=== PATIENT | female | born 1990 | race Caucasian/White ===

== ENCOUNTER → 2017-11-10 | Outpatient (CLI) | payer OTHER ==
[2017-11-10 13:27] LABS: BASO % 0.5 % (0.0-1.0); EOS # 0.1 10^3/uL (0.0-0.50); EOS % 2.1 % (0.0-3.0); HEMATOCRIT 40.5 % (36.0-47.0); HEMOGLOBIN 13.8 g/dl (12.0-15.5); IMMATURE GRANULOCYTE % 0.5 % (0-3.0); LYMPH # 2.1 10^3/uL (1.5-6.5); LYMPH % 31.5 % (24.0-44.0); MEAN CORPUSCULAR HEMOGLOBIN 32.2 pg (27.0-33.0); MEAN CORPUSCULAR HGB CONC 34.1 g/dl (32.0-36.5); MEAN CORPUSCULAR VOLUME 94.4 fl (80.0-96.0); MONO # 0.4 10^3/uL (0.0-0.8); MONO % 5.9 % (0.0-5.0); NEUTROPHILS # 3.9 10^3/uL (1.8-7.7); NEUTROPHILS % 59.5 % (36.0-66.0); PLATELET COUNT, AUTOMATED 255 10^3/uL (150-450); RED BLOOD COUNT 4.29 10^6/uL (4.00-5.40); WHITE BLOOD COUNT 6.6 10^3/uL (4.0-10.0)
[2017-11-10 16:19] LABS: CHLAMYDIA DNA AMPLIFICATION NEGATIVE (NEGATIVE); GC DNA AMPLIFICATION NEGATIVE (NEGATIVE)
[2017-11-11 09:07] LABS: RUBELLA IgG QUALITATIVE IMMUNE (IMMUNE)
[2017-11-11 09:12] LABS: HBsAg Prenatal NEGATIVE (NEGATIVE)
[2017-11-11 09:35] LABS: HEPATITIS C VIRUS ABY INDEX 0.1 INDEX (<0.8)
[2017-11-11 09:36] LABS: HIV 1&2 SCREEN CENTAUR NEGATIVE (NEGATIVE)
== END ==
LOC: M SMT 08:33
DX: Z34.81 Encounter for supervision of other normal pregnancy, first trimester (principal); Z3A.08 8 weeks gestation of pregnancy

== ENCOUNTER → 2017-12-11 | Outpatient (CLI) | payer OTHER ==
[2017-12-11 13:18] LABS: HEMATOCRIT 37.1 % (36.0-47.0); HEMOGLOBIN 12.9 g/dl (12.0-15.5); MEAN CORPUSCULAR HEMOGLOBIN 32.1 pg (27.0-33.0); MEAN CORPUSCULAR HGB CONC 34.8 g/dl (32.0-36.5); MEAN CORPUSCULAR VOLUME 92.3 fl (80.0-96.0); PLATELET COUNT, AUTOMATED 236 10^3/uL (150-450); RED BLOOD COUNT 4.02 10^6/uL (4.00-5.40); RED CELL DISTRIBUTION WIDTH 12.3 % (11.5-14.5); WHITE BLOOD COUNT 6.6 10^3/uL (4.0-10.0)
[2017-12-11 14:00] LABS: ALBUMIN 3.3 GM/DL (3.2-5.2); ALKALINE PHOSPHATASE 46 U/L (45-117); ALT/SGPT 20 U/L (12-78); ANION GAP 7 MEQ/L (8-16); AST/SGOT 13 U/L (7-37); BILIRUBIN,TOTAL 0.5 MG/DL (0.2-1.0); BLOOD UREA NITROGEN 7 MG/DL (7-18); CALCIUM LEVEL 8.7 MG/DL (8.5-10.1); CARBON DIOXIDE LEVEL 26 MEQ/L (21-32); CHLORIDE LEVEL 104 MEQ/L (98-107); CREATININE FOR GFR 0.56 MG/DL (0.55-1.30); GLOMERULAR FILTRATION RATE > 60.0 (>60); GLUCOSE, FASTING 77 MG/DL (70-100); POTASSIUM SERUM 3.7 MEQ/L (3.5-5.1); RHEUMATOID FACTOR QUANT < 10.0 IU/ML (<15.0); SODIUM LEVEL 137 MEQ/L (136-145); THYROGLOBULIN ANTIBODY 24.6 U/ML (<60.0); THYROID PEROXIDASE ANTIBODY 37.8 U/ML (<60.0); THYROXINE (T4) 15.4 UG/DL (4.5-12.0); TOTAL PROTEIN 7.4 GM/DL (6.4-8.2)
[2017-12-11 14:22] LABS: ERYTHROCYTE SEDIMENTATION RATE 15 mm/hr (0-20)
[2017-12-18 00:07] LABS: ANTINUCLEAR ANTIBODIES DIRECT Negative (Negative); IGE RECEPTOR ABY 1 <1.6 (<10)
== END ==
LOC: M SMT 09:23
DX: L50.1 Idiopathic urticaria (principal)
CPT/HCPCS: 84443

== ENCOUNTER → 2018-01-18 | Outpatient (CLI) | payer OTHER | LOC: M RAD 17:38 | DX: Z34.02 Encounter for supervision of normal first pregnancy, second trimester (principal); Z3A.18 18 weeks gestation of pregnancy | CPT/HCPCS: 76811 ==

== ENCOUNTER → 2018-02-16 | Outpatient (CLI) | payer OTHER | LOC: M RAD 17:45 | DX: Z34.02 Encounter for supervision of normal first pregnancy, second trimester (principal); Z3A.22 22 weeks gestation of pregnancy | CPT/HCPCS: 76816 ==

== ENCOUNTER → 2018-03-16 | Outpatient (CLI) | payer OTHER ==
[2018-03-16 10:59] LABS: HEMATOCRIT 34.3 % (36.0-47.0); HEMOGLOBIN 11.7 g/dl (12.0-15.5); MEAN CORPUSCULAR HEMOGLOBIN 32.7 pg (27.0-33.0); MEAN CORPUSCULAR HGB CONC 34.1 g/dl (32.0-36.5); MEAN CORPUSCULAR VOLUME 95.8 fl (80.0-96.0); PLATELET COUNT, AUTOMATED 234 10^3/uL (150-450); RED BLOOD COUNT 3.58 10^6/uL (4.00-5.40); WHITE BLOOD COUNT 9.8 10^3/uL (4.0-10.0)
== END ==
LOC: M LAB 09:18
PROVIDERS: ATTEND Advanced Practice Midwife
DX: Z34.82 Encounter for supervision of other normal pregnancy, second trimester (principal)

== ENCOUNTER → 2018-04-09 | Outpatient (CLI) | payer OTHER | LOC: M LAB 08:18 | PROVIDERS: ATTEND Advanced Practice Midwife | DX: R73.02 Impaired glucose tolerance (oral) (principal) ==

== ENCOUNTER → 2018-05-24 | Outpatient (REF) | payer OTHER | LOC: M SMT 10:41 | PROVIDERS: ATTEND Obstetrics & Gynecology | DX: Z34.03 Encounter for supervision of normal first pregnancy, third trimester (principal); Z3A.00 Weeks of gestation of pregnancy not specified ==

== ENCOUNTER 2018-06-15 06:33 | Outpatient (CLI) | payer OTHER ==
[~2018-06-15] VITALS: Ht 170.2 cm; Wt 86.2 kg
[2018-06-15 06:54] VITALS: BP 135/84
[2018-06-15 07:09] VITALS: BP 133/83
[2018-06-15] MEDS ORDERED: UNIS25TA3 PO (07:25)
[2018-06-15] MEDS ORDERED: PRENTAB9 PO (07:25)
[2018-06-15 08:01] VITALS: BP 119/72
[2018-06-15 08:34] VITALS: BP 113/73
[2018-06-15 09:22] VITALS: BP 122/73
[2018-06-15 10:27] VITALS: BP 133/78
[2018-06-16] MEDS ORDERED: IBUP80TA PO (14:40)
[2018-06-16] MEDS ORDERED: PERCOCET PO (14:40)
[2018-06-16] MEDS ORDERED: COLA100C5 PO (14:40)
== END 2018-06-15 10:52 | disposition home or self-care (01) ==
LOC: M LDO 06:33
PROVIDERS: ATTEND Advanced Practice Midwife
DX: O47.1 False labor at or after 37 completed weeks of gestation (principal); Z3A.39 39 weeks gestation of pregnancy

== ENCOUNTER 2018-06-15 20:07 | Inpatient (IN) | payer OTHER ==
[2018-06-15] VITALS (14 sets, daily range): BP systolic 95–140; BP diastolic 50–86
[~2018-06-15] VITALS: Ht 170.2 cm; Wt 86.4 kg
[~2018-06-15 20:07] MED LIST: PRENTAB9 PO; UNIS25TA3 PO
[2018-06-15] MEDS ORDERED: LACTATED RINGER'S 1000 ML IV STA (20:51)
[2018-06-15] MEDS: LR 1,000 ML IV SCH (20:51)
[2018-06-15] MEDS ORDERED: FENTANYL 2MCG/ML ROPIVACAINE 0.2% IN 0.9% NACL 100ML IVBAG As Ordered ONE (21:20)
[2018-06-15 21:26] LABS: HEMATOCRIT 40.8 % (36.0-47.0); HEMOGLOBIN 13.4 g/dl (12.0-15.5); MEAN CORPUSCULAR HEMOGLOBIN 28.9 pg (27.0-33.0); MEAN CORPUSCULAR HGB CONC 32.8 g/dl (32.0-36.5); MEAN CORPUSCULAR VOLUME 88.1 fl (80.0-96.0); PLATELET COUNT, AUTOMATED 228 10^3/uL (150-450); RED BLOOD COUNT 4.63 10^6/uL (4.00-5.40); WHITE BLOOD COUNT 10.8 10^3/uL (4.0-10.0)
[2018-06-15] MEDS ORDERED: PENICILLIN G POTASSIUM IV 5 MU in D5W MINI-BAG PLUS 100 ML IV STA (21:55)
[2018-06-15] MEDS ORDERED: PENICILLIN G POTASSIUM 5 MU VIAL As Ordered ONE (21:55)
[2018-06-15] MEDS ORDERED: PENICILLIN G POTASSIUM IV 5 MU in D5W MINI-BAG PLUS 100 ML IV SCH (22:00)
[2018-06-15] MEDS ORDERED: LACTATED RINGER'S 1000 ML IV PRN (22:10)
[2018-06-15] MEDS ORDERED: EPIDURAL/PCA KEYS XX PRN (22:10)
[2018-06-15] MEDS: FENTANYL/ROPIVACAINE/NACL BAG 100 ML EPIDURAL SCH (22:10)
[2018-06-15] MEDS ORDERED: REFRIGERATOR IV KEYS XX PRN (22:10)
[2018-06-15] MEDS ORDERED: NALOXONE INJ 0.4 MG/1 ML VIAL (J2310) IV PRN (22:10)
[2018-06-15] MEDS ORDERED: ePHEDrine SULFATE 25 MG/5 ML(5MG/ML) SYRINGE IV PRN (22:10)
[2018-06-15] MEDS ORDERED: ONDANSETRON 4MG/2ML VIAL (J2405) IV PRN (22:10)
[2018-06-15] MEDS ORDERED: EPIDURAL COMMENT XX SCH (22:10)
[2018-06-15] MEDS ORDERED: diphenhydrAMINE INJ 50MG/ML VIAL (J1200) IV PRN (22:10)
[2018-06-16] VITALS (57 sets, daily range): BP systolic 88–135; BP diastolic 51–95
--- NOTE | 2018-06-16 00:27 | HPE ---
DATE OF ADMISSION: 06/15/2018 REASON FOR ADMISSION: Labor. HISTORY OF PRESENT ILLNESS: Mrs. Ivan is a 27-year-old 1 who presents at 39 weeks 2 days estimated gestational age by her last menstrual period, confirmed by first trimester ultrasound with complaints of contractions. She reports contractions throughout the day that have increased in intensity and frequency. She reports active movement. She denies any vaginal bleeding or leakage of fluid. Her course has been unremarkable. She initiated care first trimester, has been appropriate throughout. PAST MEDICAL HISTORY: None. PAST SURGICAL HISTORY: She has had oral surgery and a liver biopsy. PAST OBSTETRICAL HISTORY: She is a 1. MEDICATIONS: Includes vitamins. ALLERGIES: She has no known drug allergies. SOCIAL HISTORY: Denies any alcohol, tobacco, or drug use during her . PHYSICAL EXAMINATION: Vital signs: Stable. She is afebrile. She has category one heart rate tracing with contractions on tocometer. General appearance: Well appearing, no acute distress. Lungs: Clear to auscultation bilaterally. Cardiovascular: Heart regular rate and rhythm. Abdomen: Her abdomen is gravid, nontender. Estimated weight 3700 grams. Cervical Exam: She is 4 cm, 90% effaced, -2 station. LABORATORY DATA: labs - her blood type is A+, antibody screen is negative. Rubella is immune. RPR is nonreactive. Hepatitis surface antigen is negative, HIV is negative. Hepatitis C is nonreactive. Chlamydia and gonorrhea screens are negative. She had an elevated 1-hour Glucola with a normal 3-hour glucose tolerance test. She is GBS positive. ASSESSMENT: 1. Mrs. Ivan is a 27-year-old 1 at 39 weeks 2 days estimated gestational age, here in active labor. 2. Reassuring status. 3. GBS positive. PLAN: 1. Admit to labor and delivery, CBC, RPR, type and screen. 2. The patient is a good candidate for an epidural. 3. Anticipate spontaneous vaginal delivery. [facility] CENTERAlonzo
[2018-06-16] MEDS ORDERED: OXYTOCIN DRIP 30 UNITS in APPROPRIATE DILUENT 1 EA IV SCH ×2 (02:00→14:34)
[2018-06-16] MEDS: PENICILLIN G POTASSIUM IV 2.5 MU in APPROPRIATE DILUENT 1 EA IV SCH ×3 (02:11→10:01)
[2018-06-16] MEDS: LR 1,000 ML IV SCH ×3 (06:10→12:02)
[2018-06-16] MEDS: FENTANYL/ROPIVACAINE/NACL BAG 100 ML EPIDURAL SCH (07:16)
[2018-06-16] MEDS: PRENATAL VITAMINS CHEWABLE TABLET PO SCH (09:00)
[2018-06-16] MEDS ORDERED: LACTATED RINGER'S 1000 ML IV STA (12:45)
[2018-06-16] MEDS ORDERED: BICITRA 30ML SOLN UDC PO ONE (13:00)
[2018-06-16] MEDS ORDERED: AZITHROMYCIN INJ 500 MG, VIAL MATE ADAPTER 1 EACH in D5W 250 ML IV ONE (13:00)
[2018-06-16] MEDS ORDERED: LIDOCAINE 2% W/EPIN INJ 20ML **PRES FREE As Ordered ONE ×2 (13:35→14:13)
[2018-06-16] MEDS ORDERED: METOCLOPRAMIDE INJ 10MG/2ML VIAL (J2765) IV PRN ×2 (14:00→15:00)
[2018-06-16] MEDS ORDERED: ONDANSETRON 4MG/2ML VIAL (J2405) IV PRN ×3 (14:00→15:00)
[2018-06-16] MEDS ORDERED: NALBUPHINE HCL 10 MG/ML AMP (J2300) IV PRN (14:00)
[2018-06-16] MEDS ORDERED: diphenhydrAMINE INJ 50MG/ML VIAL (J1200) IV PRN (14:00)
[2018-06-16] MEDS ORDERED: NALOXONE INJ 0.4 MG/1 ML VIAL (J2310) IV PRN ×2 (14:00)
[2018-06-16 14:12] LABS: CORD GAS ABE A -0.7; CORD GAS HCO3 A 26.6 MEQ/L; CORD GAS O2 SAT A 34.2 %; CORD GAS PH A 7.31 UNITS; CORD GAS PO2 A 17.5 mmHg; CORD GAS SBC A 22.3 MEQ/L; CORD GAS TCO2 A 28.2 MEQ/L
[2018-06-16 14:13] LABS: CORD GAS ABE V -1.2; CORD GAS HCO3 V 24.7 MEQ/L; CORD GAS O2 SAT V 70.7 %; CORD GAS PCO2 V 45.8 mmHg; CORD GAS PH V 7.35 UNITS; CORD GAS PO2 V 28.1 mmHg; CORD GAS SBC V 22.8 MEQ/L; CORD GAS TCO2 V 26.1 MEQ/L
[2018-06-16] MEDS ORDERED: MORPHINE PRES-FREE INJ 10 MG/10 ML VIAL (J2274) As Ordered ONE (14:13)
[2018-06-16] MEDS ORDERED: OXYTOCIN INJ 10 UNITS/ML VIAL (J2590) As Ordered ONE (14:13)
[2018-06-16] MEDS ORDERED: COLA100C5 PO (14:40)
[2018-06-16] MEDS ORDERED: IBUP80TA PO (14:40)
[2018-06-16] MEDS ORDERED: PERCOCET PO (14:40)
[2018-06-16] MEDS ORDERED: PROMETHAZINE 25 MG TAB PO PRN (14:45)
[2018-06-16] MEDS ORDERED: RHOGAM 300 MCG (1500 IU) INJ (J2790) IM SCH (14:45)
[2018-06-16] MEDS ORDERED: MEASLES,MUMPS,RUBELLA VACCINE INJ (MMR-II) (90707) SC SCH (14:45)
[2018-06-16] MEDS ORDERED: PERCOCET 5MG/325MG TAB PO PRN (15:00)
[2018-06-16] MEDS ORDERED: fentaNYL 100 MCG/2 ML INJECTION (J3010) IV PRN (15:00)
[2018-06-16] MEDS ORDERED: MEPERIDINE INJ 25 MG/ML VIAL (J2175) IV PRN (15:00)
[2018-06-16] MEDS ORDERED: LR 1,000 ML IV SCH (15:00)
[2018-06-16] MEDS ORDERED: KETOROLAC 30 MG/ML VIAL (J1885) IV PRN (15:00)
[2018-06-16] MEDS ORDERED: OXYTOCIN 30 UNITS IN 0.9% NaCl 500ML IV BAG (J2590) As Ordered ONE (15:13)
[2018-06-16] MEDS ORDERED: KETOROLAC 30 MG/ML VIAL (J1885) As Ordered ONE (15:32)
[2018-06-16] MEDS: DOCUSATE SODIUM 100 MG CAP PO SCH (21:20)
[2018-06-16] MEDS: KETOROLAC 30 MG/ML VIAL (J1885) IV SCH (21:20)
[2018-06-17 02:33] VITALS: BP 93/50
[2018-06-17] MEDS ORDERED: FENTANYL 2MCG/ML ROPIVACAINE 0.2% IN 0.9% NACL 100ML IVBAG As Ordered ONE (03:56)
[2018-06-17] MEDS: KETOROLAC 30 MG/ML VIAL (J1885) IV SCH ×2 (04:13→10:33)
[2018-06-17 06:20] VITALS: BP 94/55
[2018-06-17 07:10] LABS: HEMATOCRIT 28.1 % (36.0-47.0); MEAN CORPUSCULAR HEMOGLOBIN 29.4 pg (27.0-33.0); MEAN CORPUSCULAR HGB CONC 32.7 g/dl (32.0-36.5); MEAN CORPUSCULAR VOLUME 89.8 fl (80.0-96.0); PLATELET COUNT, AUTOMATED 215 10^3/uL (150-450); RED BLOOD COUNT 3.13 10^6/uL (4.00-5.40); WHITE BLOOD COUNT 10.6 10^3/uL (4.0-10.0)
[2018-06-17 07:21] LABS: HEMOGLOBIN 9.2 g/dl (12.0-15.5)
[2018-06-17] MEDS: PRENATAL VITAMINS CHEWABLE TABLET PO SCH (07:56)
[2018-06-17] MEDS: DOCUSATE SODIUM 100 MG CAP PO SCH ×2 (07:57→20:15)
[2018-06-17 10:00] VITALS: BP 111/63
[2018-06-17] MEDS: PERCOCET 5MG/325MG TAB PO PRN ×2 (13:41→20:16)
[2018-06-17 14:00] VITALS: BP 98/52
[2018-06-17 18:00] VITALS: BP 106/58
[2018-06-17] MEDS: IBUPROFEN 800 MG TAB PO SCH (18:11)
[2018-06-17 22:00] VITALS: BP 118/57
[2018-06-18] MEDS: PERCOCET 5MG/325MG TAB PO PRN ×2 (00:31→06:43)
[2018-06-18] MEDS: IBUPROFEN 800 MG TAB PO SCH ×2 (01:40→09:36)
[2018-06-18 06:10] VITALS: BP 94/55
[2018-06-18] MEDS ORDERED: OXYC1TAB23 PO (07:57)
[2018-06-18] MEDS: PRENATAL VITAMINS CHEWABLE TABLET PO SCH (08:23)
[2018-06-18] MEDS: DOCUSATE SODIUM 100 MG CAP PO SCH (08:23)
== END 2018-06-18 12:00 | disposition home or self-care (01) | DRG 773 ==
LOC: M LDO 20:07 → M LDI 20:27 → M OBS 06-16 16:15
PROVIDERS: ADMIT Obstetrics & Gynecology; ATTEND Obstetrics & Gynecology
PROC: 10D00Z1 Extraction of Products of Conception, Low, Open Approach (ICD-10-PCS; principal; 2018-06-16 13:49)
DX: O99.824 Streptococcus B carrier state complicating childbirth (principal); Z3A.39 39 weeks gestation of pregnancy; O62.1 Secondary uterine inertia; Z37.0 Single live birth

== ENCOUNTER → 2018-12-14 | Outpatient (REF) | payer OTHER ==
[~2018-12-14] MED LIST changes: +COLA100C5 PO; +IBUP80TA PO; +OXYC1TAB23 PO; +PERCOCET PO
[2018-12-17 14:26] LABS: HPV HYBRID CAPTURE II Negative (Negative)
== END ==
LOC: M LAB REF 14:03
PROVIDERS: ATTEND Advanced Practice Midwife
DX: Z12.4 Encounter for screening for malignant neoplasm of cervix (principal)

== ENCOUNTER → 2019-03-02 | Outpatient (REF) | payer OTHER ==
[2019-03-02 16:01] LABS: ALBUMIN 3.8 GM/DL (3.2-5.2); ALT/SGPT 77 U/L (12-78); BILIRUBIN,TOTAL 0.4 MG/DL (0.2-1.0); BLOOD UREA NITROGEN 18 MG/DL (7-18); CALCIUM LEVEL 9.3 MG/DL (8.5-10.1); CARBON DIOXIDE LEVEL 28 MEQ/L (21-32); CHLORIDE LEVEL 106 MEQ/L (98-107); CHOLESTEROL LEVEL 187 MG/DL (<200); CREATININE FOR GFR 0.88 MG/DL (0.55-1.30); FREE T4 1.08 NG/DL (0.76-1.46); GLOMERULAR FILTRATION RATE > 60.0 (>60); GLUCOSE, FASTING 67 MG/DL (70-100); HDL CHOLESTEROL 82 MG/DL (>40); LDL CHOLESTEROL 96 MG/DL (<100); NON-HDL-C 105 MG/DL; POTASSIUM SERUM 4.4 MEQ/L (3.5-5.1); SODIUM LEVEL 141 MEQ/L (136-145); TOTAL PROTEIN 7.8 GM/DL (6.4-8.2); TRIGLYCERIDES LEVEL 44 MG/DL (<150)
[2019-03-02 16:04] LABS: TOTAL 25(OH) VITAMIN D 30.2 NG/ML (30.0-100.0)
== END ==
LOC: M SFHCPLAZ 10:36
PROVIDERS: ATTEND Nurse Practitioner Family
DX: Z13.1 Encounter for screening for diabetes mellitus (principal); Z13.220 Encounter for screening for lipoid disorders; Z13.21 Encounter for screening for nutritional disorder
CPT/HCPCS: 36415; 80053; 80061; 82306; 84439; 84443; G0463

== ENCOUNTER → 2019-04-20 | Outpatient (CLI) | payer OTHER ==
[2019-04-20 13:11] LABS: HEMATOCRIT 41.5 % (36.0-47.0); HEMOGLOBIN 13.2 g/dl (12.0-15.5); MEAN CORPUSCULAR HEMOGLOBIN 29.9 pg (27.0-33.0); MEAN CORPUSCULAR HGB CONC 31.8 g/dl (32.0-36.5); MEAN CORPUSCULAR VOLUME 93.9 fl (80.0-96.0); PLATELET COUNT, AUTOMATED 233 10^3/uL (150-450); RED BLOOD COUNT 4.42 10^6/uL (4.00-5.40); WHITE BLOOD COUNT 3.7 10^3/uL (4.0-10.0)
[2019-04-20 13:20] LABS: ALBUMIN 3.8 GM/DL (3.2-5.2); ALT/SGPT 55 U/L (12-78); BILIRUBIN,TOTAL 0.5 MG/DL (0.2-1.0); BLOOD UREA NITROGEN 16 MG/DL (7-18); CARBON DIOXIDE LEVEL 28 MEQ/L (21-32); CHLORIDE LEVEL 106 MEQ/L (98-107); CREATININE FOR GFR 0.83 MG/DL (0.55-1.30); GLOMERULAR FILTRATION RATE > 60.0 (>60); GLUCOSE, FASTING 75 MG/DL (70-100); POTASSIUM SERUM 4.2 MEQ/L (3.5-5.1); SODIUM LEVEL 140 MEQ/L (136-145); TOTAL PROTEIN 7.3 GM/DL (6.4-8.2)
== END ==
LOC: M PLALAB 09:10
PROVIDERS: ATTEND Nurse Practitioner Family
DX: R74.8 Abnormal levels of other serum enzymes (principal)

== ENCOUNTER → 2019-06-03 | Outpatient (REF) | payer OTHER ==
[2019-06-03 18:11] LABS: BASO # 0.1 10^3/uL (0.0-0.2); BASO % 0.9 % (0.0-1.0); EOS # 1.1 10^3/uL (0.0-0.5); EOS % 19.5 % (0.0-3.0); HEMATOCRIT 43.5 % (36.0-47.0); HEMOGLOBIN 14.4 g/dl (12.0-15.5); LYMPH # 1.9 10^3/uL (1.5-5.0); LYMPH % 34.6 % (24.0-44.0); MEAN CORPUSCULAR HGB CONC 33.1 g/dl (32.0-36.5); MEAN CORPUSCULAR VOLUME 93.5 fl (80.0-96.0); MONO # 0.4 10^3/uL (0.0-0.8); NEUTROPHILS % 36.8 % (36.0-66.0); PLATELET COUNT, AUTOMATED 226 10^3/uL (150-450); RED BLOOD COUNT 4.65 10^6/uL (4.00-5.40); WHITE BLOOD COUNT 5.5 10^3/uL (4.0-10.0)
[2019-06-03 18:17] LABS: ALT/SGPT 53 U/L (12-78); BILIRUBIN,TOTAL 0.2 MG/DL (0.2-1.0); BLOOD UREA NITROGEN 11 MG/DL (7-18); CALCIUM LEVEL 8.9 MG/DL (8.5-10.1); CARBON DIOXIDE LEVEL 31 MEQ/L (21-32); CHLORIDE LEVEL 106 MEQ/L (98-107); CREATININE FOR GFR 0.83 MG/DL (0.55-1.30); GLOMERULAR FILTRATION RATE > 60.0 (>60); GLUCOSE, FASTING 90 MG/DL (70-100); POTASSIUM SERUM 3.9 MEQ/L (3.5-5.1); SODIUM LEVEL 142 MEQ/L (136-145)
[2019-06-03 19:13] LABS: ERYTHROCYTE SEDIMENTATION RATE 15 mm/hr (0-20)
== END ==
LOC: M SFHCPLAZ 13:59
PROVIDERS: ATTEND Nurse Practitioner Family
DX: R05 Cough (principal); R94.5 Abnormal results of liver function studies
CPT/HCPCS: 71046; 80053; 85025; 85652; G0463

== ENCOUNTER → 2019-06-03 | Outpatient (CLI) | payer OTHER ==
--- NOTE | 2019-06-03 14:28 | REPPI ---
Chest x-ray: Two views. History: Cough. No comparison study. Findings: Lungs are symmetrically aerated and clear. Pleural angles are sharp. Heart size is normal. Pulmonary vasculature is not increased. No infiltrate is seen. No bony abnormality. Impression: No infiltrate noted. Electronically Signed by Melvin Nichole MD 06/03/2019 02:21 P
== END ==
LOC: M PLAIMG 13:59
PROVIDERS: ATTEND Nurse Practitioner Family
DX: R05 Cough (principal)

== ENCOUNTER → 2020-03-02 | Outpatient (REF) | payer OTHER ==
[2020-03-02 16:49] LABS: HEMATOCRIT 40.1 % (36.0-47.0); HEMOGLOBIN 13.5 g/dl (12.0-15.5); MEAN CORPUSCULAR HEMOGLOBIN 31.8 pg (27.0-33.0); MEAN CORPUSCULAR HGB CONC 33.7 g/dl (32.0-36.5); MEAN CORPUSCULAR VOLUME 94.4 fl (80.0-96.0); PLATELET COUNT, AUTOMATED 203 10^3/uL (150-450); RED BLOOD COUNT 4.25 10^6/uL (4.00-5.40); WHITE BLOOD COUNT 6.5 10^3/uL (4.0-10.0)
[2020-03-02 17:43] LABS: HIV 1&2 SCREEN CENTAUR NEGATIVE (NEGATIVE)
== END ==
LOC: M PLALAB 10:46
PROVIDERS: ATTEND Advanced Practice Midwife
DX: O34.219 Maternal care for unspecified type scar from previous cesarean delivery (principal); Z3A.00 Weeks of gestation of pregnancy not specified

== ENCOUNTER → 2020-04-04 | Outpatient (REF) | payer OTHER | LOC: M SFHCWAGY 13:03 | PROVIDERS: ATTEND Obstetrics & Gynecology | DX: O34.211 Maternal care for low transverse scar from previous cesarean delivery (principal); Z3A.13 13 weeks gestation of pregnancy | CPT/HCPCS: 87086; G0463 ==

== ENCOUNTER → 2020-04-04 | Outpatient (CLI) | payer OTHER | LOC: M WHC 08:32 | PROVIDERS: ATTEND Obstetrics & Gynecology | DX: Z34.91 Encounter for supervision of normal pregnancy, unspecified, first trimester (principal); Z3A.13 13 weeks gestation of pregnancy; Z53.9 Procedure and treatment not carried out, unspecified reason ==

== ENCOUNTER → 2020-05-07 | Outpatient (CLI) | payer OTHER ==
--- NOTE | 2020-05-07 14:11 | REP ---
INDICATION: ANATOMY COMPARISON: None. TECHNIQUE: Transabdominal obstetrical ultrasound with color Doppler evaluation. FINDINGS: Examination demonstrates a single live intrauterine in transverse (head to maternal right) presentation. motion is identified by technologist. Placenta is noted anterior and grade 1 without evidence for placenta previa or abruption. Amniotic fluid volume is normal. Cervix measures 3.2 cm in length and appears closed.. Gestational age by current measurements 18 weeks 5 days with RORY 10/03/2020. FHR equals 146 beats per minute. BPD: 4.1 cm 18 weeks 1 day HC: 15.6 cm 18 weeks 4 days AC: 13.1 cm 18 weeks 4 days FL: 2.9 cm 18 weeks 6 days HL: 2.8 cm 18 weeks 6 days HC/AC: 1.19 Estimated weight 253 grams (71stpercentile). Anatomical assessment demonstrates normal structures including cranium, choroid plexus, cavum, cerebellum/posterior fossa, lungs, four-chamber heart/ventricular outflow tracts, diaphragm, stomach, cord insertion/three-vessel cord, kidneys/bladder, spine, and extremities. IMPRESSION: Single live intrauterine in transverse lie demonstrating appropriate interval growth and estimated weight. Limited evaluation of the facial features due to positioning. Remainder of the anatomical assessment is complete and normal. <Electronically signed by Teodoro Lozano > 05/07/20 [id number]
== END ==
LOC: M WHC 07:37
PROVIDERS: ATTEND Obstetrics & Gynecology
DX: Z36.9 Encounter for antenatal screening, unspecified (principal); Z3A.18 18 weeks gestation of pregnancy

== ENCOUNTER → 2020-06-05 | Outpatient (CLI) | payer OTHER | LOC: M WHC 08:58 | PROVIDERS: ATTEND Advanced Practice Midwife | DX: Z53.21 Procedure and treatment not carried out due to patient leaving prior to being seen by health care provider (principal) ==

== ENCOUNTER → 2020-06-18 | Outpatient (CLI) | payer OTHER ==
--- NOTE | 2020-06-18 17:28 | REP ---
INDICATION: F/U ANATOMY. COMPARISON: 05/07/2020. TECHNIQUE: Real-time sonographic evaluation of the gravid uterus performed. FINDINGS: Estimated gestational age is24 weeks 2 days, EDC 10/06/2020. Today's measurements indicate appropriate growth. Presentation: Breech Placenta the anterior, grade 0, without evidence of placenta previa. heart rate is recorded at 152 beats per minute. Amniotic fluid is subjectively normal. Closed cervical length is measured at 3.8 cm. Biometry chart: BPD: 62 mm, 25 weeks 1 days, 69th percentile. HC: 230 mm, 25 weeks 0 days, 67th percentile AC: 214 mm, 26 weeks 0 days, 84th percentile Femur length: 43 mm, 24 weeks 0 days, 43rd percentile HC to AC ratio: 1.07, normal range 1.02-1.21. Estimated weight: 772g, 78th percentile. anatomy: The facial structures, four-chamber heart, ventricular outflow tracts, stomach and bladder as well as 3 vessel cord are all visualized and are grossly unremarkable. IMPRESSION: Viable single intrauterine gestation as above. <Electronically signed by Stephen Amaya > 06/18/20 [id number]
== END ==
LOC: M WHC 15:11
PROVIDERS: ATTEND Advanced Practice Midwife
DX: Z34.92 Encounter for supervision of normal pregnancy, unspecified, second trimester (principal); Z3A.24 24 weeks gestation of pregnancy

== ENCOUNTER → 2020-07-09 | Outpatient (REF) | payer OTHER ==
[2020-07-09 14:02] LABS: HEMATOCRIT 35.6 % (36.0-47.0); HEMOGLOBIN 11.9 g/dl (12.0-15.5); MEAN CORPUSCULAR HEMOGLOBIN 33.1 pg (27.0-33.0); MEAN CORPUSCULAR HGB CONC 33.4 g/dl (32.0-36.5); MEAN CORPUSCULAR VOLUME 99.2 fl (80.0-96.0); PLATELET COUNT, AUTOMATED 230 10^3/uL (150-450); RED BLOOD COUNT 3.59 10^6/uL (4.00-5.40); WHITE BLOOD COUNT 7.7 10^3/uL (4.0-10.0)
== END ==
LOC: M PLALAB 08:04
PROVIDERS: ATTEND Advanced Practice Midwife
DX: Z36.9 Encounter for antenatal screening, unspecified (principal)
CPT/HCPCS: 36415; 82950; 85027; 86850; 86900; 86901; G0463

== ENCOUNTER → 2020-09-04 | Outpatient (REF) | payer OTHER | LOC: M SFHCWAGY 13:17 | PROVIDERS: ATTEND Advanced Practice Midwife | DX: Z34.93 Encounter for supervision of normal pregnancy, unspecified, third trimester (principal) | CPT/HCPCS: 87081; 87186; G0463 ==

== ENCOUNTER → 2020-09-24 | Outpatient (CLI) | payer OTHER ==
--- NOTE | 2020-09-24 11:38 | REP ---
INDICATION: GROWTH COMPARISON: 06/18/2020 TECHNIQUE: Transabdominal obstetrical ultrasound with color Doppler evaluation. FINDINGS: Examination demonstrates a single live intrauterine in cephalic presentation. motion is identified by technologist. Placenta is noted anterior and grade 1 without evidence for placenta previa or abruption. Amniotic fluid volume is normal. Cervix measures 4.4 cm in length and appears closed.. Selected gestational age: 38 weeks 2 days with RORY 10/06/2020. Gestational age by current measurements 38 weeks 6 days with RORY 10/02/2020. FHR equals 129 beats per minute. BPD: 9.4 cm at 38 weeks 1 day HC: 34.0 cm at 39 weeks 0 days AC: 36.8 cm at 40 weeks 5 days FL: 7.4 cm at 37 weeks 5 days HL: 6.6 cm at 38 weeks 3 days HC/AC: 0.92 Estimated weight 3826 grams (90thpercentile). KELLY: 15.7 cm (7.3-23.5) Umbilical artery SD ratio: 2.05 IMPRESSION: Single live intrauterine in cephalic presentation demonstrating upper limits of normal interval growth. Amniotic fluid volume within normal limits. <Electronically signed by Teodoro Lozano > 09/24/20 [id number]
== END ==
LOC: M RAD 10:43
PROVIDERS: ATTEND Advanced Practice Midwife
DX: O34.219 Maternal care for unspecified type scar from previous cesarean delivery (principal); O26.849 Uterine size-date discrepancy, unspecified trimester; Z3A.38 38 weeks gestation of pregnancy

== ENCOUNTER → 2020-10-08 | Outpatient (CLI) | payer SELFPAY ==
[~2020-10-08] MED LIST changes: +CLAR10CA3 PO; +SING10TA32 PO; +SYMB16INH INH; +VENTAER INH; +xyzal
== END ==
LOC: M LABSMTC 09:28
PROVIDERS: ATTEND Anesthesiology
DX: Z01.812 Encounter for preprocedural laboratory examination (principal)

== ENCOUNTER 2020-10-12 06:06 | Inpatient (IN) | payer OTHER ==
[~2020-10-12] VITALS: Ht 170.2 cm; Wt 88.8 kg
[2020-10-12] VITALS (16 sets, daily range): BP systolic 102–133; BP diastolic 55–79
[2020-10-12] MEDS ORDERED: PEPC1TAB5 PO (06:17)
[2020-10-12 06:47] LABS: HEMATOCRIT 40.1 % (36.0-47.0); MEAN CORPUSCULAR HGB CONC 34.9 g/dl (32.0-36.5); MEAN CORPUSCULAR VOLUME 94.6 fl (80.0-96.0); PLATELET COUNT, AUTOMATED 213 10^3/uL (150-450); RED BLOOD COUNT 4.24 10^6/uL (4.00-5.40)
[2020-10-12] MEDS ORDERED: BICITRA 30ML SOLN UDC PO ONE (06:55)
[2020-10-12] MEDS ORDERED: LR 1,000 ML IV ONE (06:55)
[2020-10-12] MEDS ORDERED: ceFAZolin SOD 2 GM in IV 1 EA IV ONE (06:55)
[2020-10-12] MEDS ORDERED: LR 1,000 ML IV SCH ×3 (06:55→10:20)
[2020-10-12] MEDS ORDERED: OXYTOCIN INJ 10 UNITS/ML VIAL (J2590) As Ordered ONE (07:20)
[2020-10-12] MEDS ORDERED: KETOROLAC 60MG 2ML VIAL As Ordered ONE (07:20)
[2020-10-12] MEDS ORDERED: ONDANSETRON 4MG/2ML VIAL As Ordered ONE ×2 (07:20→09:09)
[2020-10-12] MEDS ORDERED: dexameTHASONE 4 MG/ML 1ML VIAL (J1100 PER 1MG) As Ordered ONE (07:20)
[2020-10-12] MEDS ORDERED: MORPHINE PRES-FREE INJ 10 MG/10 ML VIAL (J2274) As Ordered ONE (07:21)
[2020-10-12] MEDS ORDERED: fentaNYL 100 MCG/2 ML INJECTION (J3010) As Ordered ONE (07:21)
[2020-10-12] MEDS ORDERED: NALOXONE INJ 0.4MG/1ML VIAL (J2310 PER 1MG) IV PRN ×2 (07:48)
[2020-10-12] MEDS ORDERED: METOCLOPRAMIDE INJ 10MG/2ML VIAL (J2765 PER 1) IV PRN ×2 (07:48→10:20)
[2020-10-12] MEDS ORDERED: NALBUPHINE HCL 10 MG/ML AMP (J2300) IV PRN (07:48)
[2020-10-12] MEDS ORDERED: diphenhydrAMINE 50MG/ML VIAL (J1200) IV PRN (07:48)
[2020-10-12] MEDS ORDERED: ONDANSETRON 4MG/2ML VIAL IV PRN ×3 (07:48→10:20)
[2020-10-12] MEDS ORDERED: ePHEDrine SULFATE 25 MG/5 ML(5MG/ML) SYRINGE As Ordered ONE ×2 (07:58→07:59)
[2020-10-12] MEDS: PRENATAL VITAMINS CHEWABLE TABLET PO SCH (09:00)
[2020-10-12] MEDS ORDERED: MEASLES,MUMPS,RUBELLA VACCINE INJ (MMR-II) (90707) SC SCH (09:00)
[2020-10-12] MEDS ORDERED: OXYTOCIN DRIP 30 UNITS in IV 1 EA IV SCH (09:00)
[2020-10-12] MEDS: FAMOTIDINE 20 MG TAB PO SCH (09:00)
[2020-10-12] MEDS: LORATADINE 10 MG TAB PO SCH (09:00)
[2020-10-12] MEDS ORDERED: ALBUTEROL 90 MCG/ACT 8GM HFA INHALER INH PRN (09:00)
[2020-10-12] MEDS ORDERED: ACETAMINOPHEN 500 MG TAB PO PRN (09:00)
[2020-10-12] MEDS ORDERED: RHOGAM 300 MCG (1500 IU) INJ (J2790) IM SCH (09:00)
[2020-10-12] MEDS ORDERED: PRENATAL VITAMINS CHEWABLE TABLET PO SCH (09:00)
[2020-10-12] MEDS ORDERED: PERCOCET 5MG/325MG TAB PO PRN ×2 (09:00→10:20)
[2020-10-12] MEDS: DOCUSATE SODIUM 100MG CAPSULE PO SCH ×2 (09:00→21:16)
[2020-10-12] MEDS ORDERED: SIMETHICONE 80MG CHEW TAB PO PRN (09:00)
--- NOTE | 2020-10-12 09:06 | ROOPDOC ---
[facility] Report Of Operation Report of Operation DATE OF PROCEDURE: 10/13/2019 PREPROCEDURE DIAGNOSES: 40+6 weeks gestation, history of low transverse section x1, declines trial of labor POSTPROCEDURE DIAGNOSES: Same PROCEDURE: Elective repeat low transverse section SURGEON: Rah Ness DO FACOG HOSPICE SUPERINTENDENT: Guido Garduno CNM (Essential role in retraction, extraction, and closure of all tissue layers) ANESTHESIA: Spinal with Duramorph ESTIMATED BLOOD LOSS: 500 mL. IV FLUIDS: 1500 mL LR URINE OUTPUT: 125 mL COMPLICATIONS: None. PREOPERATIVE ANTIBIOTICS: Ancef 2g IV x 1. COMPLICATIONS: none DATA: Apgars 9 and 9. Birthweight 4230 g, 9 lbs 5 oz. SPECIMENS: none PRIMARY INDICATION FOR : History of prior low transverse section declining trial of labor DESCRIPTION OF PROCEDURE: The patient was counseled on the risks, benefits, indications and alternatives of the procedure. Informed consent was obtained. She was taken to the operating room with IV running and placed on the operating table in the dorsal supine position with a leftward tilt. Regional anesthesia was found to be adequate. Sequential compression devices were placed on the lower extremities. A Rausch catheter was placed under sterile conditions. She was prepared and draped in normal sterile fashion. A time out was performed per protocol. Regional anesthesia was again found to be adequate. A Pfannenstiel skin incision was made with the 10 blade. The 10 blade was used to dissect down to the level of the rectus sheath fascia. The rectus sheath pressure was incised midline and this was extended bilaterally with Nash scissors , and manual stretch. The rectus muscle bellies were dissected off the rectus sheath fascia superiorly and inferiorly using both sharp and blunt dissection. The midline was identified. The peritoneum was identified and enter ed digitally. The peritoneal opening was extended with manual stretch. The Mobius retractor was placed. The vesicouterine peritoneum was dissected with Metzenbaum scissors to create the bladder flap. A low transverse uterine incision was made with the 10 blade. This was extended with manual stretch. The amniotic sac was punctured, and clear fluid was noted. The baby delivered through the hysterotomy without difficulty. The cord was doubly clamped and cut, and the baby was handed off to awaiting care. data shown above. The placenta was removed manually. The intrauterine cavity was cleared of all clot and debris. The hysterotomy was closed with 0 Vicryl in running locked fashion. This was reinforced with a second imbricating layer using 0 Vicryl in running fashion. Excellent hemostasis of the hysterotomy was noted. The pelvis was irrigated and the fluid suctioned. The Mobius retractor was removed. The peritoneum was closed with 3-0 Vicryl running fashion. The rectus muscles bellies were hemostatic. The rectus sheath fascia was closed with 0 Vicryl running fashion. The subcutaneous layer was irrigated and the fluid suctioned. Small bleeding vessels were cauterized with Bovie. Excellent hemostasis was noted. The subcutaneous layer was reapproximated with 3-0 Vicryl running fashion. Skin was closed with 3-0 Monocryl in subcuticular fashion. An Optifoam bandage was placed over the closed incision. Sponge, needle and instrument counts were correct per protocol throughout the procedure. The patient tolerated the entire procedure very well. She was transferred to the PACU in stable condition. DO NENITA Schafer JONATHAN R. DO Oct 12, 2020 09:06
[2020-10-12] MEDS ORDERED: PERCOCET PO (09:08)
[2020-10-12] MEDS ORDERED: DOK1CAP7 PO (09:08)
[2020-10-12] MEDS ORDERED: IBUP80TA PO (09:08)
[2020-10-12] MEDS ORDERED: OXYTOCIN 30 UNITS IN 0.9% NaCl 500ML IV BAG (J2590) As Ordered ONE (09:10)
[2020-10-12] MEDS ORDERED: METOCLOPRAMIDE INJ 10MG/2ML VIAL (J2765 PER 1) As Ordered ONE (10:18)
[2020-10-12] MEDS ORDERED: fentaNYL 100 MCG/2 ML INJECTION (J3010) IV PRN (10:20)
[2020-10-12] MEDS: KETOROLAC 30 MG/ML 1ML VIAL IV SCH ×2 (15:09→21:16)
[2020-10-12] MEDS: SYMBICORT 160/4.5MCG INHALER 6GM INH SCH (20:11)
[2020-10-12] MEDS: MONTELUKAST 10 MG TAB PO SCH (21:39)
[2020-10-13 02:00] VITALS: BP 111/60
[2020-10-13] MEDS: KETOROLAC 30 MG/ML 1ML VIAL IV SCH (03:39)
[2020-10-13 06:00] VITALS: BP 114/55
[2020-10-13] MEDS: SYMBICORT 160/4.5MCG INHALER 6GM INH SCH ×2 (07:23→19:58)
[2020-10-13 07:32] LABS: HEMATOCRIT 34.3 % (36.0-47.0); MEAN CORPUSCULAR HEMOGLOBIN 32.7 pg (27.0-33.0); MEAN CORPUSCULAR HGB CONC 33.8 g/dl (32.0-36.5); MEAN CORPUSCULAR VOLUME 96.6 fl (80.0-96.0); PLATELET COUNT, AUTOMATED 184 10^3/uL (150-450); RED BLOOD COUNT 3.55 10^6/uL (4.00-5.40); WHITE BLOOD COUNT 10.2 10^3/uL (4.0-10.0)
[2020-10-13 07:33] LABS: HEMOGLOBIN 11.6 g/dl (12.0-15.5)
--- NOTE | 2020-10-13 07:40 | IPNPDOC ---
Text Note Date of Service The patient was seen on 10/13/20. NOTE PO #1 Feels well. Adequate pain management. Voiding and passing flatus VSS, afebrile, normotensive Breasts soft, nipples intact Fundus firm, NT Dressing dry and intact Lochia rubra light without odor PO #1 Routine care. Anticipate D/C in am VS,Fishbone, I+O VS, Fishbone, I+O Laboratory Tests 10/13/20 06:53 Vital Signs Date Time Temp Pulse Resp B/P (MAP) Pulse Ox O2 Delivery O2 Flow Rate FiO2 10/13/20 06:00 98.0 72 16 114/55 (74) 96 Room Air I&O- Last 24 Hours up to 6 AM 10/13/20 06:00 Intake Total 4500 ml Output Total 2925 ml Balance 1575 ml iMckie Jewell CNM Oct 13, 2020 07:40
[2020-10-13] MEDS: DOCUSATE SODIUM 100MG CAPSULE PO SCH ×2 (08:49→20:34)
[2020-10-13] MEDS: PRENATAL VITAMINS CHEWABLE TABLET PO SCH (08:49)
[2020-10-13] MEDS: FAMOTIDINE 20 MG TAB PO SCH (08:49)
[2020-10-13] MEDS: LORATADINE 10 MG TAB PO SCH (08:50)
[2020-10-13 10:00] VITALS: BP 99/55
[2020-10-13] MEDS: IBUPROFEN 800 MG TAB PO SCH ×2 (11:13→19:45)
[2020-10-13 14:57] VITALS: BP 103/53
[2020-10-13 18:00] VITALS: BP 115/58
[2020-10-13] MEDS: MONTELUKAST 10 MG TAB PO SCH (20:34)
[2020-10-13] MEDS: PERCOCET 5MG/325MG TAB PO PRN (20:35)
[2020-10-13 22:00] VITALS: BP 126/60
[2020-10-14 02:00] VITALS: BP 123/66
[2020-10-14] MEDS: IBUPROFEN 800 MG TAB PO SCH (03:00)
[2020-10-14] MEDS: PERCOCET 5MG/325MG TAB PO PRN (05:21)
[2020-10-14 06:00] VITALS: BP 121/59
[2020-10-14] MEDS: SYMBICORT 160/4.5MCG INHALER 6GM INH SCH (07:55)
[2020-10-14] MEDS: FAMOTIDINE 20 MG TAB PO SCH (09:00)
[2020-10-14] MEDS: LORATADINE 10 MG TAB PO SCH (09:00)
[2020-10-14] MEDS: DOCUSATE SODIUM 100MG CAPSULE PO SCH (09:45)
[2020-10-14] MEDS: PRENATAL VITAMINS CHEWABLE TABLET PO SCH (09:45)
--- NOTE | 2020-10-14 10:51 | DS.PDOC ---
Discharge Summary General Date of Admission Oct 12, 2020 at 06:06 Date of Discharge 10/14/2020 Discharge Summary DATE OF ADMISSION: 10/12/2020 DATE OF DISCHARGE: 10/15/2019 ADMISSION DIAGNOSIS: Late term gestation, history of low transverse section x1, declining induction/trial of labor after . DISCHARGE DIAGNOSIS: Same DISCHARGE SUMMARY: The patient was admitted at 40+6 weeks gestation with a jozef gnosis of late term gestation and a history of a low transverse section, scheduled for a repeat low transverse delivery. The section delivery was uncomplicated. Her postoperative course was uncomplicated as well. On postoperative day #2, she was meeting all discharge criteria. PHYSICAL EXAMINATION ON DATE OF DISCHARGE: Normotensive. Normal heart rate. Afebrile. HEART: Regular rate and rhythm. No murmurs, gallops, or rubs. LUNGS: Clear to auscultation bilaterally. ABDOMEN: Soft, nontender, nondistended. Incision bandage clean and dry. EXTREMITIES: Nonedematous, nontender. She was meeting all discharge criteria on postoperative day #2. We reviewed routine fever, infectious, pain, and bleeding precautions. She is to followup in 2 weeks for incision check. Her postoperative medications are Percocet, Motrin, and Colace. Vital Signs/I&Os Vital Signs Date Time Temp Pulse Resp B/P (MAP) Pulse Ox O2 Delivery O2 Flow Rate FiO2 10/14/20 06:10 18 Room Air 10/14/20 06:00 97.3 68 121/59 (79) 98 Discharge Medications Scheduled Budesonide/Formoterol (Symbicort 160-4.5 Mcg Inhaler) 6 Gm Hfa.aer.ad, 2 PUFF INH BID, (Reported) Docusate Sodium (Dok) 100 Mg Capsule, 100 MG PO BID Famotidine (Pepcid) 20 Mg Tablet, 20 MG PO DAILY, (Reported) Ibuprofen (Ibuprofen) 800 Mg Tablet, 800 MG PO Q8H Loratadine (Claritin) 10 Mg Capsule, 10 MG PO DAILY, (Reported) Montelukast Sodium (Singulair) 10 Mg Tablet, 10 MG PO QHS, (Reported) No.137/Iron/Folic Acd ( Vitamin Tablet) 1 Tab Tab, 1 TAB PO DAILY, (Reported) Scheduled PRN Albuterol Sulfate (Ventolin Hfa) 18 Gm Hfa.aer.ad, 2 PUFFS INH PRN PRN for DYSPNEA, (Reported) Oxycodone/Acetaminophen (Oxycodone-Acetaminophen 5-325) 1 Each Tablet, 1 TAB PO Q4H PRN for MILD/MODERATE PAIN (PS 1-7) Allergies Coded Allergies: No Known Allergies (Unverified , 06/15/18) LANETTE ARVIZU DO Oct 14, 2020 10:51
== END 2020-10-14 11:25 | disposition home or self-care (01) | DRG 773 ==
LOC: M LDI 06:06 → M OBS 10:57
PROVIDERS: ADMIT Obstetrics & Gynecology; ATTEND Obstetrics & Gynecology
PROC: 10D00Z1 Extraction of Products of Conception, Low, Open Approach (ICD-10-PCS; principal; 2020-10-12 07:30)
DX: O34.211 Maternal care for low transverse scar from previous cesarean delivery (principal); Z3A.40 40 weeks gestation of pregnancy; Z37.0 Single live birth; O48.0 Post-term pregnancy; O99.824 Streptococcus B carrier state complicating childbirth; O69.81X0 Labor and delivery complicated by cord around neck, without compression, not applicable or unspecified